=== PATIENT | female | born 1955 | race Caucasian/White ===

== ENCOUNTER → 2016-05-03 | Outpatient (CLI) | payer OTHER ==
[2013-11-27 08:17] VITALS: BP 165/87
[~2016-05-03] MED LIST: AMLO10TA2 PO; ASPI-482 PO; CETI10TA22 PO; CHOL500016 PO; LEVO50TA5 PO; LOVA20TA2 PO
--- NOTE | 2016-05-03 09:57 | RAD ---
EXAM: Left knee, 3 views. HISTORY: Fall. COMPARISON: 07/09/2015. FINDINGS: Frontal, lateral and oblique views of the right knee are obtained. There is mild medial and moderate patellofemoral compartment joint space narrowing with subchondral sclerosis and marginal spurring. There is no acute fracture, dislocation or subluxation. There is a trace joint effusion. IMPRESSION: 1. Moderate patellofemoral and mild medial compartment osteoarthritis of the right knee with suspected trace effusion. 2. No acute osseous finding.
--- NOTE | 2016-05-03 10:11 | RAD ---
EXAM: Right ankle, 3 views. HISTORY: Pain. COMPARISON: None. FINDINGS: Frontal, lateral and mortise views of the right ankle are obtained. There is no acute fracture, dislocation or subluxation. There is a corticated ossicle inferior to the medial malleolus, likely due to the sequela of remote injury. There is tibiotalar spurring. There is a moderate plantar spur. There is a prominent os trigonum. There is ankle soft tissue swelling. IMPRESSION: 1. No acute osseous finding. 2. Diffuse ankle soft tissue swelling. 3. 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 4. Moderate plantar spur.
== END | disposition home or self-care (01) ==
LOC: RAD 09:02
PROVIDERS: ATTEND Internal Medicine
DX: M17.11 Unilateral primary osteoarthritis, right knee (principal); M25.571 Pain in right ankle and joints of right foot
CPT/HCPCS: 73562; 73610

== ENCOUNTER → 2016-08-16 | Outpatient (CLI) | payer OTHER ==
[2013-11-27 08:17] VITALS: BP 165/87
--- NOTE | 2016-08-16 14:42 | RAD ---
EXAM: DIGITAL SCREEN BILAT W/CAD. HISTORY: Screening. COMPARISON: Outside mammogram 03/01/2014. FINDINGS: Digital mammography was performed. Computer-aided detection (CAD) was utilized. The breast parenchyma demonstrates scattered fibroglandular densities (tissue density B). No dominant suspicious mass, suspicious microcalcifications, or architectural distortion is identified. IMPRESSION: No mammographic evidence of malignancy. BI-RADS CATEGORY: 1 NEGATIVE RECOMMENDED FOLLOW-UP: 12M 12 MONTH FOLLOW-UP PQRS compliance statement: Patient information was entered into a reminder system with a target due date for the next mammogram. Mammography is a sensitive method for finding small breast cancers, but it does not detect them all and is not a substitute for careful clinical examination. A negative mammogram does not negate a clinically suspicious finding and should not result in delay in biopsying a clinically suspicious abnormality. "Our facility is accredited by the [employer] Mammography Program."
== END | disposition home or self-care (01) ==
LOC: MAMMO 13:26
PROVIDERS: ATTEND Internal Medicine
DX: Z12.31 Encounter for screening mammogram for malignant neoplasm of breast (principal)
CPT/HCPCS: G0202; 77067

== ENCOUNTER → 2017-02-08 | Outpatient (CLI) | payer OTHER ==
[2013-11-27 08:17] VITALS: BP 165/87
--- NOTE | 2017-02-08 12:21 | KCIC ---
EXAM: Dual energy x-ray absorptiometry (DEXA). HISTORY: Postmenopausal female presents for osteoporosis screening. COMPARISON: None. TECHNIQUE: Dual energy x-ray absorptiometry of the lumbar spine and left hip was performed. Calculation of bone mineral density based on standard deviations above or below the expected young adult normal value (T-score) was completed. FINDINGS: The average bone mineral density in the 1st through 4th lumbar vertebrae is 0.978 g/cmxcm, corresponding with a T-score of -0.6. The average total bone mineral density in the left hip is 0.897 g/cmxcm, corresponding with a T-score of -0.4. IMPRESSION: Normal bone mineral density. Note: Definitions established by the World Health Organization: 1. Normal: T-score is -1.0 or above. 2. Osteopenia: T-score is between -1.0 and -2.5 . 3. Osteoporosis: T-score is -2.5 or below. Electronically signed by: Modesta Knight MD (02/08/2017 12:18 PM) [facility]
== END | disposition home or self-care (01) ==
LOC: KCIC DEXA 11:44
PROVIDERS: ATTEND Internal Medicine
DX: Z13.820 Encounter for screening for osteoporosis (principal); Z78.0 Asymptomatic menopausal state
CPT/HCPCS: 77080

== ENCOUNTER → 2017-08-22 | Outpatient (CLI) | payer OTHER | END | disposition home or self-care (01) | LOC: RAD 09:24 | DX: M17.11 Unilateral primary osteoarthritis, right knee (principal); I12.9 Hypertensive chronic kidney disease with stage 1 through stage 4 chronic kidney disease, or unspecified chronic kidney disease; N18.9 Chronic kidney disease, unspecified; E11.9 Type 2 diabetes mellitus without complications; E78.00 Pure hypercholesterolemia, unspecified; E03.9 Hypothyroidism, unspecified | CPT/HCPCS: 73562 ==

== ENCOUNTER → 2018-02-08 | Outpatient (CLI) | payer OTHER ==
[2013-11-27 08:17] VITALS: BP 165/87
[~2018-02-08] MED LIST changes: -AMLO10TA2 PO; +AMLO10TA6 PO; +BUSP5TAB PO; +HYDR-2758 PO; +HYDR25TA9 PO; +IPRA0.2S5 IH; +LOSA50TA7 PO; +METF500T16 PO; +POTA10TA12 PO; +PRAV40TA2 PO; +SERT50TA PO
--- NOTE | 2018-02-08 16:50 | KCIC ---
Bilateral digital screening mammograms: Reason for examination: Routine screening. Comparison is made to previous studies dated 08/16/2016 and 05/23/2015. Interpretation was made with the benefit of CAD. The skin and nipples show no abnormalities. No abnormal axillary lymph nodes are seen. The breast parenchyma shows scattered fibroglandular density. (Breast density: Category B.) There continues to be some nodular asymmetry in the upper outer quadrant of the right breast which is unchanged. There is however increasing nodularity present in the right breast at approximately the retroareolar 9:00 position. Recommend further evaluation with ultrasound. There are no other new masses, suspicious calcifications or architectural distortions. Impression: Focally increased nodularity in the retroareolar 9:00 position of the right breast. Recommend further evaluation with ultrasound. BI-RADS Category 0: Incomplete. Needs additional imaging evaluation. "Our facility is accredited by the [employer] Mammography Program." This patient's information has been entered into a reminder system for the patient to be notified with the results of her examination and a target date for the next mammogram. Electronically signed by: Aimee Day MD (02/08/2018 4:47 PM) [facility]
== END | disposition home or self-care (01) ==
LOC: KCIC MAMMO 12:20
PROVIDERS: ATTEND Internal Medicine
DX: Z12.31 Encounter for screening mammogram for malignant neoplasm of breast (principal); Z87.891 Personal history of nicotine dependence
CPT/HCPCS: 77067

== ENCOUNTER → 2018-02-24 | Outpatient (CLI) | payer OTHER ==
[2013-11-27 08:17] VITALS: BP 165/87
--- NOTE | 2018-02-24 12:56 | KCIC ---
EXAM: Right breast sonogram. HISTORY: 62-year-old female presents for evaluation of nodularity within the right breast demonstrated on a mammogram dated 02/08/2018. TECHNIQUE: Sonographic imaging of the retroareolar region of the right breast was performed. COMPARISON: 02/08/2018. FINDINGS: There is a solid hypoechoic lesion with blood flow within a focally dilated duct within the retroareolar aspect of the right breast, measuring 8.5 mm in maximum dimension. This corresponds with the mammographic finding of concern. There are few surrounding focally dilated ducts and fibrocystic changes. IMPRESSION: 1. 8.5 mm intraductal lesion within the retroareolar right breast, corresponding with the finding of concern on the recent mammogram. The imaging appearance favors an intraductal papilloma. Sonographic guided biopsy is recommended for definitive diagnosis. 2. BI-RADS Category 4: Suspicious abnormality. Biopsy is recommended. These findings and recommendations were discussed with the patient and will be communicated to the referring physician office. Electronically signed by: Modesta Knight MD (02/24/2018 12:53 PM) [facility]
== END | disposition home or self-care (01) ==
LOC: KCIC US 12:31
PROVIDERS: ATTEND Internal Medicine
DX: N64.89 Other specified disorders of breast (principal)
CPT/HCPCS: 76641

== ENCOUNTER → 2018-03-22 | Outpatient (CLI) | payer OTHER ==
[2013-11-27 08:17] VITALS: BP 165/87
[~2018-03-22] MED LIST changes: +HYDR-2145 PO; -HYDR-2758 PO; +HYDR-2761 PO; -HYDR25TA9 PO; +LIDOCAINE 1% Multi-Dose 50 ML VIAL. INJ ONE; +LIDOCAINE 1%/EPI 1:100,000 20 ML VIAL. INJ ONE; +LOSA-73 PO; -LOSA50TA7 PO
--- NOTE | 2018-03-23 16:09 | PATHOLOGY ---
[facility] Accession Number: [id number] . 01 Material submitted: . RIGHT BREAST MASS . 01 Clinical history: . Right breast mass . 02 Diagnosis: Breast tissue, right breast mass needle biopsies: - Intraductal papilloma, small. - Fibrocystic changes with the following components: - Stromal fibrosis. - Duct ectasia. - Cystic change. . (JPM/at;03/23/2018) QTA/03/23/2018 . 02 Comment: Sections of the right breast mass needle biopsy show fibrocystic changes. There is a small intraductal papilloma measuring 1 mm. There is no atypia or evidence of malignancy. . (JPM/at;03/23/2018) . 02 Electronically signed: . Vinay Stephenson MD, Pathologist NPI- [id number] . 01 Gross description: . Received in formalin labeled "Diana Briones, right breast BX," are multiple needle cores of yellow-veliz fibrofatty tissue measuring 3.0 x 1.8 x 0.5 cm in aggregate dimensions. The tissue submitted in its entirety in cassette A1 through A3. The cold ischemic time is 4 minutes. The total formalin fixation time is approximately 11 hours. (TSD; 03/22/2018) TOB/TOB . 02 Pathologist provided ICD-10: D24.1, N60.11, N60.31, N60.41 . 02 CPT . 436883 Specimen Comment: A courtesy copy of this report has been sent to Specimen Comment: [phone], , . Specimen Comment: Report sent to ,DR DAVILA / DR SCHMIDT Specimen Comment: A duplicate report has been generated due to demographic updates. Performed at: 01 [facility] [address], [place] [id number] MD Natanael Lainez MD Phone: [phone] Performed at: 02 [facility] [address], [place] [id number] MD Vinay Stephenson MD Phone: [phone]
--- NOTE | 2018-03-24 08:08 | RAD ---
Ultrasound-guided right breast biopsy, 03/22/2018: History: Intraductal nodule A previous ultrasound study demonstrated a small nodule of medium echogenicity within a dilated duct in the lateral right retroareolar region. Under local anesthesia, aseptic conditions and sonographic guidance the Unyqe biopsy instrument was passed into this density via a lateral approach. Multiple 12-gauge vacuum-assisted core samples were obtained. A biopsy marker was deposited the biopsy site. The biopsy instrument was then removed and hemostasis obtained. Two-view postprocedural digital mammograms were then obtained to document position of the biopsy marker. A small postbiopsy hematoma is evident at the biopsy site. The patient tolerated the procedure well and left the department in good condition. The subsequent pathology report indicated the presence of an intraductal papilloma with no evidence of malignancy. This is considered to be a concordant finding.
== END | disposition home or self-care (01) ==
LOC: US 12:13
PROVIDERS: ATTEND Surgery
DX: D24.1 Benign neoplasm of right breast (principal); N60.31 Fibrosclerosis of right breast; N60.41 Mammary duct ectasia of right breast
CPT/HCPCS: 19083; 77065; 88305; C1713; 19085; 76942

== ENCOUNTER → 2019-03-01 | Outpatient (CLI) | payer OTHER ==
[2013-11-27 08:17] VITALS: BP 165/87
[~2019-03-01] MED LIST changes: -AMLO10TA6 PO; +AMLO10TA8 PO; -LIDOCAINE 1% Multi-Dose 50 ML VIAL. INJ ONE; -LIDOCAINE 1%/EPI 1:100,000 20 ML VIAL. INJ ONE
--- NOTE | 2019-03-02 10:15 | RAD ---
DATE: March 01, 2019 EXAM: DIGITAL SCREEN BILAT W/CAD HISTORY: Screening study. History of intraductal papilloma of the retroareolar region of the right breast. COMPARISON: 2016 and 2017 This study was interpreted with the benefit of Computerized Aided Detection (CAD). FINDINGS: Breast Density: SCATTERED The breast parenchyma shows scattered fibroglandular densities. Breast parenchyma level B.. There are no new dominant suspicious masses, suspicious microcalcifications or evidence of architectural distortion. Postbiopsy changes of the retroareolar region of the right breast are again noted. IMPRESSION: No mammographic indicators for malignancy. BI-RADS CATEGORY: 2 BENIGN FINDING RECOMMENDED FOLLOW-UP: 12M 12 MONTH FOLLOW-UP PQRS compliance statement: Patient information was entered into a reminder system with a target due date March 02, 2020 for the next mammogram. Mammography is a sensitive method for finding small breast cancers, but it does not detect them all and is not a substitute for careful clinical examination. A negative mammogram does not negate a clinically suspicious finding and should not result in delay in biopsying a clinically suspicious abnormality. "Our facility is accredited by the [employer] Mammography Program." The patient's breast density may affect the ability of mammography to detect breast cancer. There are 4 categories of breast density, A, B, C and D. Breast density A means that most of the breast tissue is replaced with adipose tissue and therefore is not dense. Breast density B means that the breast tissue is mildly dense and scattered. Breast density C means that the breast tissue is heterogeneously dense. Breast density D means that the breast tissue is very dense. Breast densities especially C and D may decrease the sensitivity of mammography to detect breast cancer. Therefore, the patient may benefit from 3-D breast mammography (3D breast tomography) as a part of their screening mammogram. Insurance may or may not pay for this additional imaging. The patient's breast density based on today's mammogram is category B.
== END | disposition home or self-care (01) ==
LOC: MAMMO 10:14
PROVIDERS: ATTEND Internal Medicine
DX: Z12.31 Encounter for screening mammogram for malignant neoplasm of breast (principal)
CPT/HCPCS: 77067

== ENCOUNTER → 2020-09-23 | Outpatient (CLI) | payer MEDICARE ==
[2013-11-27 08:17] VITALS: BP 165/87
[~2020-09-23] MED LIST changes: +AMLO-187 PO; -AMLO10TA8 PO; -CETI10TA22 PO; +CETI10TA74 PO
--- NOTE | 2020-09-23 10:05 | RAD ---
EXAMINATION: CT head without IV contrast INDICATION:64 years, Female, acute posttraumatic headache. COMPARISON: None TECHNIQUE: Spiral acquisition of contiguous images from the skull base to the vertex were obtained. S agittal and coronal 2D reformatted series were provided by the technologist. Soft tissue and bone win [place] algorithms were reviewed. Exposure: One or more of the following individualized dose reduction techniques were utilized for thi s examination: 1. Automated exposure control 2. Adjustment of the mA and/or kV according to patient size 3. Use of iterative reconstruction technique. FINDINGS: Neither mass, midline shift, intracranial hemorrhage, acute/subacute ischemic changes, nor extraaxial fluid collections are seen. The brain parenchyma is normal in appearance. The ventricles are normal in size. The paranasal sinuses, mastoid air cells, and middle ears are clear. The orbital contents appear within normal limits. IMPRESSION: No evidence of acute intracranial abnormality. Electronically signed by: Julia Del Toro MD (09/23/2020 10:02 AM) [id number]
== END ==
LOC: CT 10:02
PROVIDERS: ATTEND Internal Medicine
DX: R51.9 Headache, unspecified (principal)
CPT/HCPCS: 70450

== ENCOUNTER → 2020-11-12 | Outpatient (CLI) | payer MEDICARE, OTHER ==
[2013-11-27 08:17] VITALS: BP 165/87
--- NOTE | 2020-11-12 12:39 | RAD ---
DATE: 11/12/2020 EXAM: DIGITAL SCREEN BILAT W/CAD HISTORY: Screening COMPARISON: Multiple prior exams dating back to 03/01/2014 This study was interpreted with the benefit of Computerized Aided Detection (CAD). Breast Density: SCATTERED The breast parenchyma shows scattered fibroglandular densities. Breast parenchyma level B. FINDINGS: No mass, suspicious calcification, or architectural distortion in either breast. IMPRESSION: No evidence of malignancy. BI-RADS CATEGORY: 1 NEGATIVE RECOMMENDED FOLLOW-UP: 12M 12 MONTH FOLLOW-UP PQRS compliance statement: Patient information was entered into a reminder system with a target due date for the next mammogram. Mammography is a sensitive method for finding small breast cancers, but it does not detect them all and is not a substitute for careful clinical examination. A negative mammogram does not negate a clinically suspicious finding and should not result in delay in biopsying a clinically suspicious abnormality. "Our facility is accredited by the [employer] Mammography Program."
== END ==
LOC: MAMMO 08:52
PROVIDERS: ATTEND Internal Medicine
DX: Z12.31 Encounter for screening mammogram for malignant neoplasm of breast (principal)
CPT/HCPCS: 77067